=== PATIENT | male | born 1970 ===

== ENCOUNTER 2016-12-10 09:37 | Emergency (ER) | payer SELFPAY ==
[2016-12-10 09:52] VITALS: O2SAT 98
--- NOTE | 2016-12-10 11:30 | RAD ---
PROCEDURE: Radiographs of the right tibia and fibula. HISTORY: pain s.p fall from ladder COMPARISON: None available. TECHNIQUE: Frontal and lateral views obtained. FINDINGS: BONES: Hypertrophic bone surrounds the proximal fibula likely relating to a subacute or chronic fracture. Tiny residual fracture line along its anterior aspect may still be present. However this is limited given the superimposition. Well corticated ossification borders the posterior tibial plateau pedunculated osteophytes here and/or loose bodies are considerations. B are spine spurring. Medial knee joint line spurring. JOINT SPACES: Patellofemoral joint space narrow medial femoral tibial joint space narrowing present. OTHER FINDINGS: Small anterior superior patellar spurring - blending quadriceps and insertional enthesophyte. Scattered lower leg phleboliths. Mild diffuse subcutaneous edema. Prepatellar and infrapatellar subcutaneous/dermal thickening IMPRESSION: Proximal fibular head deformity with osseous hypertrophy -subacute or chronic appearing fracture here inferred. Acute on chronic pathology not excluded. Osteoarthrosis
--- NOTE | 2016-12-10 11:43 | C.PDOC ---
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 Patient states he was able to ambulate following the fall, but notes increased pain with ambulation today. He denies head injury, LOC, or changes in sensation. - HPI Time Seen by Provider: 12/10/16 10:08 Chief Complaint (Nursing): Trauma History Per: Patient History/Exam Limitations: no limitations Onset/Duration Of Symptoms: Days (1 day ) Injury Occurred (Timing): Days Ago: (yesterday) Recent travel outside of the [place]: No - Fall Fall:Prior To Injury: Lost Balance Past Medical History Reviewed: Historical Data, Nursing Documentation, Vital Signs Vital Signs: Last Vital Signs Temp 97.5 F L 12/10/16 14:31 Pulse 80 12/10/16 14:31 Resp 18 12/10/16 14:31 BP 142/91 H 12/10/16 14:31 Pulse Ox 98 12/10/16 17:37 Family History: States: Unknown Family Hx - Social History Hx Alcohol Use: Yes Hx Substance Use: No - Immunization History Hx Tetanus Toxoid Vaccination: No Hx Influenza Vaccination: Yes (2016) Hx Pneumococcal Vaccination: No Review Of Systems Constitutional: Negative for: Fever, Chills Cardiovascular: Negative for: Chest Pain Respiratory: Negative for: Shortness of Breath Gastrointestinal: Negative for: Nausea, Vomiting Musculoskeletal: Positive for: Shoulder Pain (left shoulder pain), Back Pain, Leg Pain (right knee pain ) Neurological: Negative for: Weakness, Numbness Physical Exam - Physical Exam Appears: Non-toxic, No Acute Distress Skin: Warm, Dry Head: Atraumatic, Normacephalic Eye(s): bilateral: Normal Inspection, PERRL, EOMI Oral Mucosa: Moist Neck: Supple Chest: Symmetrical, No Deformity Cardiovascular: Rhythm Regular, No Murmur Respiratory: Normal Breath Sounds, No Rales, No Rhonchi, No Wheezing Gastrointestinal/Abdominal: Soft, No Tenderness, No Distention, No Guarding, No Rebound Back: Paraspinal Tenderness (paralumbar tenderness ) Extremity: No Normal ROM (decreased ROM of right knee, secondary to pain ), Tenderness (to anterior medial right knee and left anterior shoulder ), No Calf Tenderness, Capillary Refill (good capillary refill, less than two seconds ), Swelling (to anterior medial right knee), Other (no foot tenderness) Pulses: Left Dorsalis Pedis: Normal, Right Dorsalis Pedis: Normal Neurological/Psych: Oriented x3, Normal Speech, Normal Cognition, Normal Motor, Normal Sensation ED Course And Treatment O2 Sat by Pulse Oximetry: 98 (room air) - Other Rad Right Foot X-Ray X-Ray: Viewed By Me, Read By Radiologist Interpretation: FINDINGS: BONES: A well corticated rounded 6 mm ossification is dorsal to the talonavicular joint. A 2 x 7 mm ossification borders the dorsal cuneiform -metatarsal articulations. The proximal dorsal ossification appears more chronic- a pedunculated osteophyte or old dorsal osseous avulsion here is favored. The more distal sliver like ossification is indeterminate- spurring versus osseous avulsion - of unknown chronicity are considerations. The dorsal soft tissues are not immediately focally prominent here. JOINTS: As above. SOFT TISSUES: Normal. OTHER FINDINGS: None. IMPRESSION: The dorsal ossification at the tarsal metatarsal level is indeterminate in its chronicity and etiology and spurring versus osseous avulsion (chronicity unclear ) are considerations. No proximal dorsal ossification is more chronic appearing as above. No dislocation no gross metatarsal fractures apparent LS Spine X-Ray X-Ray: Viewed By Me, Read By Radiologist Interpretation: FINDINGS: BONES: Normal alignment. No listhesis. No fracture. DISC SPACES: Unremarkable. OTHER FINDINGS: Incompletely visualized fecal impaction. IMPRESSION: No acute findings related to/accounting for the clinical presentation. Left shoulder X-Ray X-Ray: Viewed By Me, Read By Radiologist Interpretation: FINDINGS: BONES: Normal. No fracture. JOINTS: Normal. Glenohumeral and acromioclavicular joints preserved. No osteoarthritis. SOFT TISSUES: Normal. OTHER FINDINGS: None. IMPRESSION: No acute findings related to/accounting for the clinical presentation. Radiographs of the right tibia and fibula X-Ray: Viewed By Me, Read By Radiologist Interpretation: FINDINGS: BONES: Hypertrophic bone surrounds the proximal fibula likely relating to a subacute or chronic fracture. Tiny residual fracture line along its anterior aspect may still be present. However this is limited given the superimposition. Well corticated ossification borders the posterior tibial plateau pedunculated osteophytes here and/or loose bodies are considerations. B are spine spurring. Medial knee joint line spurring. JOINT SPACES: Patellofemoral joint space narrow medial femoral tibial joint space narrowing present. OTHER FINDINGS: Small anterior superior patellar spurring - blending quadriceps and insertional enthesophyte. Scattered lower leg phleboliths. Mild diffuse subcutaneous edema. Prepatellar and infrapatellar subcutaneous/dermal thickening. IMPRESSION: Proximal fibular head deformity with osseous hypertrophy -subacute or chronic appearing fracture here inferred. Acute on chronic pathology not excluded. Osteoarthrosis - CT Scan/US CT right knee Other Rad Studies (CT/US): Read By Radiologist, Radiology Report Reviewed CT/US Interpretation: Findings: Prominent productive change and heterotopic bone formation seen at the level of the proximal fibula suggestive for chronic fracture deformity. In addition, there is a curvilinear area of increased sclerosis seen on series 602, image 36 for which superimposed acute on chronic injury cannot be excluded. Correlation with MRI may be helpful if clinically indicated. Moderate medial compartment joint space narrowing with subchondral sclerosis, and osteophytosis. Prominent osteophytosis noted at the posterior medial femoral condyle with adjacent 1.3 centimeter loose osteochondral body noted at the at that level. Prominent spurring of the tibial spines. Focal lucency/osteopenia seen at the inferior pole of the patella, nonspecific. This is of uncertain clinical etiology however osseous injury cannot entirely be excluded. Correlation with MRI may be helpful if clinically indicated. Prominent bony spurring noted at the superior and inferior bony patella. Moderate to large suprapatellar joint effusion. Small to moderate posterior Espinosa cyst. Fat containing focus/lipomatosis focus seen within the medial head of the gastrocnemius muscle measuring up to 1.1 centimeters. Fatty atrophy of the soleus muscle with calcific foci seen within the lateral aspect of the soleus muscle measuring 5.6 millimeters. Reticulation and edema seen within the prepatellar soft tissues. Impression: 1. Prominent productive change and heterotopic bone formation seen at the level of the proximal fibula suggestive for chronic fracture deformity. In addition, there is a curvilinear area of increased sclerosis seen on series 602, image 36 for which superimposed acute on chronic injury cannot be excluded. Correlation with MRI may be helpful if clinically indicated. 2. Focal lucency/osteopenia seen at the inferior pole of the patella, nonspecific. This is of uncertain clinical etiology however osseous injury cannot entirely be excluded. Correlation with MRI may be helpful if clinically indicated. 3. Moderate to large suprapatellar joint effusion. 4. Small to moderate posterior Espinosa cyst. 5. Moderate medial compartment joint space narrowing with subchondral sclerosis, and osteophytosis. Prominent osteophytosis noted at the posterior medial femoral condyle with adjacent 1.3 centimeter loose osteochondral body noted at the at that level. 6. Prominent spurring of the tibial spines. 7. Prominent bony spurring noted at the superior and inferior bony patella. 8. Fat containing focus/lipomatosis focus seen within the medial head of the gastrocnemius muscle measuring up to 1.1 centimeters. 9. Fatty atrophy of the soleus muscle with calcific foci seen within the lateral aspect of the soleus muscle measuring 5.6 millimeters. 10. Reticulation and edema seen within the prepatellar soft tissues. Progress Note: Right knee CT, Right foot X-Ray, Right Tibia and Fibula X-Ray, LS Spine X-Ray, and left shoulder X-Ray were ordered. Patient was given Motrin. - Physician Consult Information Time Consulting Physician Contacted: 12:20 Physician Contacted: Jose Rafael Hidalgo Medical Decision Making Medical Decision Making: Impression: injury s.p fall from ladder suspect fx Plan: Xrays shoulder, foot, tib/gib and LS spine Progress: [address] Hidalgo [address] Dr Hidalgo calls back and requests CT scan of extremity and to call back with results 1400 CT report reviewed, see full report. Page Dr Hidalgo 14[address] Dr Hidalgo and he recommends knee immobilizer and crutches. Patient to be discharged and follow up outpatient Crutches given with proper instruction by physical therapy Knee immobilizer applied by CP. Patient given verbal and written discharge instruction and understands to follow up Disposition Counseled Patient/Family Regarding: Need For Followup, Rx Given - Disposition Referrals: Jose Rafael Hidalgo MD [Staff Provider] - at [facility] [Outside] Disposition: HOME/ ROUTINE Disposition Time: 14:13 Condition: STABLE Additional Instructions: La radiografa muestra la fractura de la rodilla derecha Por favor tome medicamentos para el dolor cuando sea necesario Seguimiento en la clnica para ms atencin y con ortopedia DR Bair Prescriptions: Naproxen [Naprosyn] 1 tab PO BID PRN #25 tab PRN Reason: Pain Instructions: Crutch Instructions (ED), Patellar Fracture (ED) Forms: [employer] (Amharic) Print Language: YAKUT - POA Present On Arrival: None - Clinical Impression Clinical Impression: Fibula fracture - PA / JUVENILE COURT JUDGE / Resident Statement MD/DO has reviewed & agrees with the documentation as recorded. - Scribe Statement The provider has reviewed the documentation as recorded by the Scribe Faith Villa All medical record entries made by the Gonzaloiballne were at my direction and personally dictated by me. I have reviewed the chart and agree that the record accurately reflects my personal performance of the history, physical exam, medical decision making, and the department course for this patient. I have also personally directed, reviewed, and agree with the discharge instructions and disposition.
--- NOTE | 2016-12-10 13:43 | RAD ---
PROCEDURE: Right Foot Radiographs. HISTORY: pain s.p fall from ladder COMPARISON: None. FINDINGS: BONES: A well corticated rounded 6 mm ossification is dorsal to the talonavicular joint. A 2 x 7 mm ossification borders the dorsal cuneiform -metatarsal articulations. The proximal dorsal ossification appears more chronic- a pedunculated osteophyte or old dorsal osseous avulsion here is favored. The more distal sliver like ossification is indeterminate- spurring versus osseous avulsion - of unknown chronicity are considerations. The dorsal soft tissues are not immediately focally prominent here. JOINTS: As above SOFT TISSUES: Normal. OTHER FINDINGS: None. IMPRESSION: The dorsal ossification at the tarsal metatarsal level is indeterminate in its chronicity and etiology and spurring versus osseous avulsion (chronicity unclear) are considerations. No proximal dorsal ossification is more chronic appearing as above No dislocation no gross metatarsal fractures apparent
--- NOTE | 2016-12-10 13:52 | CT ---
CT right knee History: Knee pain. Injury. Comparison: None available. Technique: Multiple contiguous axial images were performed through the right knee without the use of intravenous contrast. Subsequently, sagittal and coronal reformatted images were obtained. Findings: Prominent productive change and heterotopic bone formation seen at the level of the proximal fibula suggestive for chronic fracture deformity. In addition, there is a curvilinear area of increased sclerosis seen on series 602, image 36 for which superimposed acute on chronic injury cannot be excluded. Correlation with MRI may be helpful if clinically indicated. Moderate medial compartment joint space narrowing with subchondral sclerosis, and osteophytosis. Prominent osteophytosis noted at the posterior medial femoral condyle with adjacent 1.3 centimeter loose osteochondral body noted at the at that level. Prominent spurring of the tibial spines. Focal lucency/osteopenia seen at the inferior pole of the patella, nonspecific. This is of uncertain clinical etiology however osseous injury cannot entirely be excluded. Correlation with MRI may be helpful if clinically indicated. Prominent bony spurring noted at the superior and inferior bony patella. Moderate to large suprapatellar joint effusion. Small to moderate posterior Espinosa cyst. Fat containing focus/lipomatosis focus seen within the medial head of the gastrocnemius muscle measuring up to 1.1 centimeters. Fatty atrophy of the soleus muscle with calcific foci seen within the lateral aspect of the soleus muscle measuring 5.6 millimeters. Reticulation and edema seen within the prepatellar soft tissues. Impression: 1. Prominent productive change and heterotopic bone formation seen at the level of the proximal fibula suggestive for chronic fracture deformity. In addition, there is a curvilinear area of increased sclerosis seen on series 602, image 36 for which superimposed acute on chronic injury cannot be excluded. Correlation with MRI may be helpful if clinically indicated. 2. Focal lucency/osteopenia seen at the inferior pole of the patella, nonspecific. This is of uncertain clinical etiology however osseous injury cannot entirely be excluded. Correlation with MRI may be helpful if clinically indicated. 3. Moderate to large suprapatellar joint effusion. 4. Small to moderate posterior Espinosa cyst. 5. Moderate medial compartment joint space narrowing with subchondral sclerosis, and osteophytosis. Prominent osteophytosis noted at the posterior medial femoral condyle with adjacent 1.3 centimeter loose osteochondral body noted at the at that level. 6. Prominent spurring of the tibial spines. 7. Prominent bony spurring noted at the superior and inferior bony patella. 8. Fat containing focus/lipomatosis focus seen within the medial head of the gastrocnemius muscle measuring up to 1.1 centimeters. 9. Fatty atrophy of the soleus muscle with calcific foci seen within the lateral aspect of the soleus muscle measuring 5.6 millimeters. 10. Reticulation and edema seen within the prepatellar soft tissues.
[2016-12-10 14:32] VITALS: BP 142/91; PULSE 80; RESP 18; TEMP 97.5
--- NOTE | 2016-12-10 17:36 | RAD ---
PROCEDURE: Radiographs of the Lumbar Spine. HISTORY: pain s.p fall from ladder COMPARISON: No prior. FINDINGS: BONES: Normal alignment. No listhesis. No fracture. DISC SPACES: Unremarkable. OTHER FINDINGS: Incompletely visualized fecal impaction. IMPRESSION: No acute findings related to/accounting for the clinical presentation.
--- NOTE | 2016-12-10 17:36 | RAD ---
PROCEDURE: Radiographs of the Left Shoulder HISTORY: pain s.p fall COMPARISON: No prior. FINDINGS: BONES: Normal. No fracture. JOINTS: Normal. Glenohumeral and acromioclavicular joints preserved. No osteoarthritis. SOFT TISSUES: Normal. OTHER FINDINGS: None. IMPRESSION: No acute findings related to/accounting for the clinical presentation.
== END 2016-12-10 14:59 | disposition home or self-care (01) ==
LOC: C.ER 09:37
DX: S82.491A Other fracture of shaft of right fibula, initial encounter for closed fracture (principal); W11.XXXA Fall on and from ladder, initial encounter; Y92.89 Other specified places as the place of occurrence of the external cause; Y99.0 Civilian activity done for income or pay
CPT/HCPCS: 72100; 73030; 73590; 73630; 73700; 97116; 97161; 99285; G8978; G8979; G8980

== ENCOUNTER 2017-03-13 13:50 | Emergency (ER) | payer OTHER ==
[2017-03-13 13:58] VITALS: RESP 18; TEMP 97.4
[2017-03-13] MEDS ORDERED: Albuterol-Ipratrop 3 mg / 0.5 (3 ml) UD INH STA ×2 (14:14→14:53)
[2017-03-13] MEDS ORDERED: Albuterol-Ipratrop 3 mg / 0.5 (3 ml) UD ONE ×2 (14:22→14:58)
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
[2017-03-13] MEDS ORDERED: ceFAZolin IV 1 gm in Dextrose 1 GM/50 ML BAG IVPB STA (14:32)
[2017-03-13 14:36] LABS: BASO # 0.1 K/uL (0.0-0.2); EOS # 0.5 K/uL (0.0-0.7); EOS % 5.9 % (0.0-4.0); HEMATOCRIT 39.7 % (35.0-51.0); LYMPH # 2.6 K/uL (1.0-4.3); LYMPH % 33.7 % (20.0-40.0); MEAN CELL VOLUME 79.2 fL (80.0-94.0); MEAN CORPUSCULAR HEMOGLOBIN 26.2 pg (27.0-31.0); MEAN PLATELET VOLUME 7.6 fL (7.2-11.7); MONO # 0.6 K/uL (0.0-0.8); MONO % 7.7 % (0.0-10.0); RED CELL DISTRIBUTION WIDTH 15.4 % (11.5-14.5); WHITE BLOOD COUNT 7.8 K/uL (4.8-10.8)
[2017-03-13 14:53] LABS: ALKALINE PHOSPHATASE 57 U/L (38-126); ALT/SGPT 40 U/L (21-72); AST/SGOT 20 U/L (17-59); BILIRUBIN,TOTAL 0.3 mg/dL (0.2-1.3); BLOOD UREA NITROGEN 17 mg/dL (9-20); CALCIUM 8.2 mg/dl (8.6-10.4); CARBON DIOXIDE 31 mmol/L (22-30); CHLORIDE 104 mmol/L (98-107); GFR AFRICAN-AMERICAN > 60; GLUCOSE,RANDOM 123 mg/dL (75-110); POTASSIUM 3.6 mmol/L (3.6-5.2); SODIUM 140 mmol/L (132-148); TOTAL PROTEIN 7.2 g/dL (6.3-8.3)
[2017-03-13] MEDS ORDERED: ceFAZolin 1 gm FROZEN Premix 1 GM/50 ML ML IVPB ONE (14:53)
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
[2017-03-13 16:40] VITALS: BP 157/87; PULSE 92
[2017-03-13 16:43] VITALS: O2SAT 95
== END 2017-03-13 16:51 | disposition home or self-care (01) ==
LOC: C.ER 13:50
DX: J40 Bronchitis, not specified as acute or chronic (principal); S80.862A Insect bite (nonvenomous), left lower leg, initial encounter; W57.XXXA Bitten or stung by nonvenomous insect and other nonvenomous arthropods, initial encounter; Y92.89 Other specified places as the place of occurrence of the external cause
CPT/HCPCS: 71020; 80053; 85025; 86703; 87804; 94150; 94640; 99284; J0690

== ENCOUNTER 2017-09-22 10:33 | Emergency (ER) | payer OTHER ==
[2017-09-22 10:55] VITALS: RESP 20; TEMP 98.1
[2017-09-22 11:39] VITALS: BP 138/64; PULSE 92; O2SAT 96
--- NOTE | 2017-09-22 15:03 | C.PDOC ---
History Of Present Illness 47 y/o male presents to the ER complaining of a cyst on the right middle finger which has been present for the past 1.5 years. Patient is requesting for the cyst to be removed. Patient denies having recent trauma and other complaints. Chief Complaint (Nursing): Abnormal Skin Integrity History Per: Patient History/Exam Limitations: no limitations Onset/Duration Of Symptoms: Days Current Symptoms Are (Timing): Still Present Severity: Moderate Past Medical History Reviewed: Historical Data, Nursing Documentation, Vital Signs Vital Signs: Last Vital Signs Temp 98.1 F 09/22/17 10:53 Pulse 92 H 09/22/17 11:35 Resp 20 09/22/17 11:35 BP 138/64 09/22/17 11:35 Pulse Ox 96 09/22/17 15:55 - Medical History PMH: No Chronic Diseases Other Surgeries: Hx of surgeries Family History: States: Diabetes - Social History Hx Tobacco Use: Yes Hx Alcohol Use: Yes Hx Substance Use: Yes (cocaine use.) - Immunization History Hx Tetanus Toxoid Vaccination: No Hx Influenza Vaccination: Yes (2016) Hx Pneumococcal Vaccination: No Review Of Systems Except As Marked, All Systems Reviewed And Found Negative. Skin: Positive for: Other (cyst to right 3rd middle finger) Physical Exam - Physical Exam Appears: Non-toxic, No Acute Distress Skin: Normal Color, Warm, Dry, Other (large mobile cystic mass to dorsal aspect of right 3rd digit) Head: Atraumatic, Normacephalic Eye(s): bilateral: Normal Inspection Nose: Normal Oral Mucosa: Moist Neck: Supple Chest: Symmetrical Cardiovascular: Rhythm Regular Respiratory: Normal Breath Sounds, No Rales, No Rhonchi, No Wheezing Neurological/Psych: Oriented x3, Normal Speech ED Course And Treatment O2 Sat by Pulse Oximetry: 96 (RA) Pulse Ox Interpretation: Normal Medical Decision Making Medical Decision Making: Patient has been discharged and instructed to follow up with hand surgeon this week for re-evaluation and treatment. Disposition - Disposition Referrals: Delgado Klein MD [Staff Provider] - Disposition: HOME/ ROUTINE Disposition Time: 11:10 Condition: GOOD Additional Instructions: LUIZ MARTINEZ, thank you for letting us take care of you today. Your provider was Randolph Jean DO and you were treated for ABSCESS. The emergency medical care you received today was directed at your acute symptoms. If you were prescribed any medication, please fill it and take as directed. It may take several days for your symptoms to resolve. Return to the Emergency Department if your symptoms worsen, do not improve, or if you have any other problems. Please contact your doctor or call one of the physicians/clinics you have been referred to that are listed on the Patient Visit Information form that is included in your discharge packet. Bring any paperwork you were given at discharge with you along with any medications you are taking to your follow up visit. Our treatment cannot replace ongoing medical care by a primary care provider outside of the emergency department. Thank you for allowing the [facility] team to be part of your care today. Follow up with Dr. Klein, a hand surgeon, this week for re-evaluation and further management. Prescriptions: Ibuprofen [Motrin] 600 mg PO Q6 PRN #20 tab PRN Reason: Pain, Moderate (4-7) Instructions: Epidermal Cyst Forms: [email or web address] (Lebanese) - Clinical Impression Clinical Impression: Cyst of finger - Scribe Statement The provider has reviewed the documentation as recorded by the Peggy Nguyen Provider Attestation: All medical record entries made by the Gonzaloiballen were at my direction and personally dictated by me. I have reviewed the chart and agree that the record accurately reflects my personal performance of the history, physical exam, medical decision making, and the department course for this patient. I have also personally directed, reviewed, and agree with the discharge instructions and disposition.
== END 2017-09-22 11:39 | disposition home or self-care (01) ==
LOC: C.ER 10:33
DX: L72.8 Other follicular cysts of the skin and subcutaneous tissue (principal)